=== PATIENT | male | born 1975 | race Caucasian/White ===

== ENCOUNTER 2017-04-17 00:14 | Inpatient (IN) | payer SELFPAY ==
[~2017-04-17] VITALS: Ht 190.5 cm; Wt 74.6 kg
[2017-04-17 00:45] VITALS: BP 111/59
[2017-04-17] MEDS ORDERED: METOCLOPRAMIDE HCL 10 MG/2 ML VIAL. IV PRN (00:45)
[2017-04-17] MEDS ORDERED: ONDANSETRON PF 4 MG/2 ML VIAL. IV PRN ×2 (00:45→10:45)
[2017-04-17] MEDS: IV NORMAL SALINE 1000ML BAG 1,000 ML IV SCH ×3 (01:11→16:45)
[2017-04-17] MEDS: fentaNYL PF VIAL 100 MCG/2 ML VIAL IV PRN ×2 (01:11→22:04)
[2017-04-17] MEDS ORDERED: GINK120C PO (01:20)
[2017-04-17 02:45] LABS: BASO % 0 % (0-3); EOS % 0 % (0-3); HEMATOCRIT 37.7 % (39.0-53.0); HEMOGLOBIN 12.5 g/dL (13.0-17.5); LYMPH # 0.8 x10^3/uL (1.0-4.8); LYMPH % 5 % (24-48); MEAN CORPUSCULAR HEMOGLOBIN 32 pg (25-35); MEAN CORPUSCULAR HGB CONC 33 g/dL (31-37); MEAN CORPUSCULAR VOLUME 96 fL (79-100); MONO % 3 % (0-9); NEUT % 92 % (31-73); PLATELET COUNT 193 x10^3/uL (140-400); RED BLOOD COUNT 3.92 x10^6/uL (4.30-5.70); RED CELL DISTRIBUTION WIDTH 13.7 % (11.5-14.5); WHITE BLOOD COUNT 16.5 x10^3/uL (4.0-11.0)
[2017-04-17 03:00] LABS: CALCIUM 7.8 mg/dL (8.5-10.1); CREATININE 0.8 mg/dL (0.7-1.3); GFR 107.1; POTASSIUM 3.7 mmol/L (3.5-5.1)
[2017-04-17 03:06] VITALS: BP_SYST 120; BP_SYST 97; BP_DIAS 45; BP_DIAS 76
[2017-04-17 03:24] LABS: PLT ESTIMATE ADEQUATE (ADEQUATE)
[2017-04-17 07:00] VITALS: BP 126/71
[2017-04-17] MEDS: PANTOPRAZOLE IV PUSH 40 MG VIAL. IVP SCH ×2 (08:31→18:06)
[2017-04-17 09:55] LABS: BASO % 0 % (0-3); EOS % 0 % (0-3); HEMATOCRIT 37.2 % (39.0-53.0); HEMOGLOBIN 12.5 g/dL (13.0-17.5); LYMPH # 1.2 x10^3/uL (1.0-4.8); LYMPH % 6 % (24-48); MEAN CORPUSCULAR HEMOGLOBIN 32 pg (25-35); MEAN CORPUSCULAR HGB CONC 34 g/dL (31-37); MEAN CORPUSCULAR VOLUME 95 fL (79-100); MONO % 6 % (0-9); NEUT % 88 % (31-73); PLATELET COUNT 210 x10^3/uL (140-400); RED BLOOD COUNT 3.91 x10^6/uL (4.30-5.70); RED CELL DISTRIBUTION WIDTH 13.5 % (11.5-14.5); WHITE BLOOD COUNT 20.4 x10^3/uL (4.0-11.0)
--- NOTE | 2017-04-17 09:55 | PDOC2 ---
CONSULT Date of Consult Date of Consult DATE: 04/17/17 TIME: 09:46 Reason for Consult Reason for Consult: Hematemesis Referring Physician Referring Physician: Dr. Rivera Source Source: Chart review, Patient History of Present Illness Reason for Visit: 41 y/o male who presented to [facility] ER yesterday after what sounds like possible heat exhaustion, complicated by repeated nausea and vomiting. Initially saw food, then bile, then some BRB/coffee-ground material. Today w/o N or V. No melena. Denies h/o heartburn, dysphagia or other dyspeptic symptoms prior to this. No PUD, GB, liver or pancreatic history. Smoker. Rare alcohol. Occasional use of Aleve. Typically w/o diarrhea or constipation. No hematochezia. Wt/appetite stable. GI family history negative. Only minor drop in hemoglobin from [facility] value and normal BUN. Past Medical History Past Medical History Negative. Past Surgical History Past Surgical History None Family History Family History: No Significant Social History ALCOHOL: rare Current Medications Current Medications Current Medications Sodium Chloride 1,000 ml @ 125 mls/hr Q8H IV Last administered on 04/17/17 08 :38; Start 04/17/17 at 00:45 Fentanyl Citrate (Fentanyl 2ml Vial) 75 mcg PRN Q2HR PRN IV SEVERE PAIN Last administered on 04/17/17 01:11; Start 04/17/17 at 00:45 Ondansetron HCl (Zofran) 8 mg PRN Q8HRS PRN IV NAUSEA/VOMITING; Start 04/17/17 at 00:45 Metoclopramide HCl (Reglan) 10 mg PRN Q6HRS PRN IV NAUSEA/VOMITING; Start 04/17 at 00:45 Pantoprazole Sodium (Protonix Vial) 40 mg BIDAC IVP Last administered on 08:31; Start 04/17/17 at 07:30 Active Scripts Active Reported Ginkgo Biloba (Ginkgo Biloba Extract) 120 Mg Capsule 120 Mg PO DAILY Allergies Allergies: Coded Allergies: morphine (Verified Allergy, Intermediate, Nausea and Vomiting, 04/17/17) Penicillins (Verified Allergy, Mild, Nausea and Vomiting, 04/17/17) ROS Review of System 10-point review otherwise negative. Physical Exam General: Alert, Oriented X3, Cooperative, No acute distress Lungs: Clear to auscultation Heart: Regular rate, Normal S1, Normal S2, No murmurs Abdomen: Normal bowel sounds, Soft, No hepatosplenomegaly, No masses, Other ( tender rectus muscle) Extremities: No cyanosis, No edema Skin: No significant lesion Neuro: Normal speech, Strength at 5/5 X4 ext, Normal tone, Sensation intact, Cranial nerves 3-12 NL, Reflexes 2+ Psych/Mental Status: Mental status NL, Mood NL MUSCULOSKELETAL: No deformity, No swelling Vitals VITALS Vital Signs Date Time Temp Pulse Resp B/P (MAP) Pulse Ox O2 Delivery O2 Flow Rate FiO2 04/17/17 07:40 Room Air 04/17/17 07:00 98.6 73 18 126/71 (89) 95 98.6 Labs Labs Laboratory Tests Test 04/17/17 02:15 White Blood Count 16.5 x10^3/uL (4.0-11.0) Red Blood Count 3.92 x10^6/uL (4.30-5.70) Hemoglobin 12.5 g/dL (13.0-17.5) Hematocrit 37.7 % (39.0-53.0) Mean Corpuscular Volume 96 fL (79-100) Mean Corpuscular Hemoglobin 32 pg (25-35) Mean Corpuscular Hemoglobin Concent 33 g/dL (31-37) Red Cell Distribution Width 13.7 % (11.5-14.5) Platelet Count 193 x10^3/uL (140-400) Neutrophils (%) (Auto) 92 % (31-73) Lymphocytes (%) (Auto) 5 % (24-48) Monocytes (%) (Auto) 3 % (0-9) Eosinophils (%) (Auto) 0 % (0-3) Basophils (%) (Auto) 0 % (0-3) Neutrophils # (Auto) 15.1 x10^3uL (1.8-7.7) Lymphocytes # (Auto) 0.8 x10^3/uL (1.0-4.8) Monocytes # (Auto) 0.5 x10^3/uL (0.0-1.1) Eosinophils # (Auto) 0.0 x10^3/uL (0.0-0.7) Basophils # (Auto) 0.0 x10^3/uL (0.0-0.2) Segmented Neutrophils % 97 % (35-66) Lymphocytes % 1 % (24-48) Monocytes % 2 % (0-10) Platelet Estimate Adequate (ADEQUATE) Sodium Level 139 mmol/L (136-145) Potassium Level 3.7 mmol/L (3.5-5.1) Chloride Level 106 mmol/L (98-107) Carbon Dioxide Level 24 mmol/L (21-32) Anion Gap 9 (6-14) Blood Urea Nitrogen 19 mg/dL (8-26) Creatinine 0.8 mg/dL (0.7-1.3) Estimated GFR (Cockcroft-Gault) 107.1 Glucose Level 102 mg/dL (70-99) Calcium Level 7.8 mg/dL (8.5-10.1) Laboratory Tests Test 04/17/17 02:15 White Blood Count 16.5 x10^3/uL (4.0-11.0) Red Blood Count 3.92 x10^6/uL (4.30-5.70) Hemoglobin 12.5 g/dL (13.0-17.5) Hematocrit 37.7 % (39.0-53.0) Mean Corpuscular Volume 96 fL (79-100) Mean Corpuscular Hemoglobin 32 pg (25-35) Mean Corpuscular Hemoglobin Concent 33 g/dL (31-37) Red Cell Distribution Width 13.7 % (11.5-14.5) Platelet Count 193 x10^3/uL (140-400) Neutrophils (%) (Auto) 92 % (31-73) Lymphocytes (%) (Auto) 5 % (24-48) Monocytes (%) (Auto) 3 % (0-9) Eosinophils (%) (Auto) 0 % (0-3) Basophils (%) (Auto) 0 % (0-3) Neutrophils # (Auto) 15.1 x10^3uL (1.8-7.7) Lymphocytes # (Auto) 0.8 x10^3/uL (1.0-4.8) Monocytes # (Auto) 0.5 x10^3/uL (0.0-1.1) Eosinophils # (Auto) 0.0 x10^3/uL (0.0-0.7) Basophils # (Auto) 0.0 x10^3/uL (0.0-0.2) Segmented Neutrophils % 97 % (35-66) Lymphocytes % 1 % (24-48) Monocytes % 2 % (0-10) Platelet Estimate Adequate (ADEQUATE) Sodium Level 139 mmol/L (136-145) Potassium Level 3.7 mmol/L (3.5-5.1) Chloride Level 106 mmol/L (98-107) Carbon Dioxide Level 24 mmol/L (21-32) Anion Gap 9 (6-14) Blood Urea Nitrogen 19 mg/dL (8-26) Creatinine 0.8 mg/dL (0.7-1.3) Estimated GFR (Cockcroft-Gault) 107.1 Glucose Level 102 mg/dL (70-99) Calcium Level 7.8 mg/dL (8.5-10.1) Assessment/Plan Assessment/Plan IMP: Hematemesis. 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 REC: Continue NPO, IV PPI. Will arrange for EGD today. --other pending. Thank you for allowing me to assist in the care of this patient. Please call if questions. GERMÁN RUSSELL MD Apr 17, 2017 09:55
[2017-04-17 09:59] LABS: CALCIUM 7.9 mg/dL (8.5-10.1); CREATININE 0.7 mg/dL (0.7-1.3); GFR 124.9; POTASSIUM 3.5 mmol/L (3.5-5.1)
--- NOTE | 2017-04-17 10:16 | ACF ---
Admission Forms Criteria GASTROINTESTINAL BLEEDING Clinical Indications for Inpatient Care (Place 'X' for any and all applicable criteria): Ongoing inpatient care may be indicated for gastrointestinal bleeding with ANY ONE of the following (4)(20)(21)(22)(23)(24): [X]I. Active bleeding (eg, fresh voluminous blood in emesis or nasogastric aspirate, or per rectum) [ ]II. Hemodynamic instability [ ]III. Anticoagulation therapy or coagulopathy ((eg, advanced liver disease, irreversible anticoagulation) [ ]IV. Ischemic colitis (22) [ ]V. Endoscopy showing arterial bleeding, adherent clot, nonbleeding visible vessel, varices, flat red spots, ulcer size greater than 2 cm, or portal hypertensive gastropathy [ ]. High-risk low platelet count [ ]VII. Anemia requiring inpatient care as indicated by ANY ONE of the following a)[ ] Cognitive impairment b)[ ] Syncope c)[ ] Heart failure d)[ ] Chest pain e)[ ] Dyspnea f)[ ] Other findings suggesting inadequate perfusion (eg, peripheral or myocardial ischemia, end organ dysfunction) [ ]VIII. High-risk low platelet count [ ]IX. Suspected variceal cause of bleeding as indicated by ANY ONE of the following(27)(28): a)[ ] Known varices b)[ ] Hepatomegaly or splenomegaly c)[ ] Ascites d)[ ] Jaundice or scleral icterus e)[ ] History of liver disease (eg, cirrhosis) f)[ ] Physical findings of portal hypertension (eg, caput medusa) g)[ ] Comorbid disorder indicating risk for portal vein thrombosis (eg , abdominal surgery, sepsis, shock, exchange transfusion, prior umbilical vein catheterization) Extended stay may be needed until ALL of the following are present(20)(38)(47): [ ]a) Hemodynamic stability [ ]b) No evidence of active bleeding (eg, stable Hematocrit) [ ]c) Platelet count, prothrombin time, and partial thromboplastin time acceptable for next level of care [ ]d) Surgical or other acute intervention not needed [ ]e) Oral hydration and diet tolerated The original [employer] content created by [employer] has been revised. The portions of the content which have been revised are identified through the use of italic text or in bold, and [employer] has neither reviewed nor approved the modified material. All other unmodified content is copyright [facility]. Please see references footnoted in the original [facility] edition 2016 Admission Criteria Met?: Yes JOSR FITZPATRICK Apr 17, 2017 10:15
[2017-04-17] MEDS ORDERED: hydrALAZINE 20 MG/ML VIAL. IVP PRN (10:45)
[2017-04-17] MEDS ORDERED: ACETAMINOPHEN 325 MG TABLET. PO PRN (10:45)
[2017-04-17] MEDS ORDERED: ALBUTEROL SULFATE 2.5 MG/3 ML NEBU. NEB PRN (10:45)
--- NOTE | 2017-04-17 10:50 | PDOC1 ---
History and Physical Family History Family History: No Significant Social History ALCOHOL: rare Current Medications Current Medications Current Medications Medications (Trade) Dose Ordered Sig/Rochelle Start Time Stop Time Status Last Admin Dose Admin Fentanyl Citrate (Fentanyl 2ml Vial) 75 mcg PRN Q2HR PRN 04/17/17 00:45 04/17/17 01:11 75 MCG Metoclopramide HCl (Reglan) 10 mg PRN Q6HRS PRN 04/17/17 00:45 Ondansetron HCl (Zofran) 8 mg PRN Q8HRS PRN 04/17/17 00:45 Pantoprazole Sodium (Protonix Vial) 40 mg BIDAC 04/17/17 07:30 04/17/17 08:31 40 MG Sodium Chloride 1,000 ml @ 125 mls/hr Q8H 04/17/17 00:45 04/17/17 08:38 125 MLS/HR Allergies Allergies Allergies Coded Allergies Type Severity Reaction Last Updated Verified morphine Allergy Intermediate Nausea and Vomiting 04/17/17 Yes Penicillins Allergy Mild Nausea and Vomiting 04/17/17 Yes ROS Review of System CONSTITUTIONAL: No fever or chills EYES: No recent changes SKIN: No rash or itching CARDIOVASCULAR: No chest pain, syncope, palpitations, or edema RESPIRATORY: No SOB or cough GASTROINTESTINAL: nausea, vomiting or abdominal pain NEUROLOGICAL: No headaches or weakness ENDOCRINE: No cold or heat intolerance GENITOURINARY: No urgency or frequency of urination MUSCULOSKELETAL: No back pain or joint pain LYMPHATICS: No enlarged lymph nodes PSYCHIATRIC: No anxiety or depression Physical Exam Physical Exam GEN.: No apparent distress. Alert and oriented. HEENT: Head is normocephalic, atraumatic NECK: Supple. LUNGS: Clear to auscultation. HEART: RRR, S1, S2 present. Peripheral pulses intact ABDOMEN: Soft, nontender. Positive bowel sounds. EXTREMITIES: Without any cyanosis. NEUROLOGIC: Normal speech, normal tone PSYCHIATRIC: Normal affect, normal mood. SKIN: No ulcerations Vitals Vitals Vital Signs Date Time Temp Pulse Resp B/P (MAP) Pulse Ox O2 Delivery O2 Flow Rate FiO2 04/17/17 07:40 Room Air 04/17/17 07:00 98.6 73 18 126/71 (89) 95 98.6 Labs Labs Laboratory Tests Test 04/17/17 02:15 04/17/17 09:40 White Blood Count 16.5 x10^3/uL (4.0-11.0) 20.4 x10^3/uL (4.0-11.0) Red Blood Count 3.92 x10^6/uL (4.30-5.70) 3.91 x10^6/uL (4.30-5.70) Hemoglobin 12.5 g/dL (13.0-17.5) 12.5 g/dL (13.0-17.5) Hematocrit 37.7 % (39.0-53.0) 37.2 % (39.0-53.0) Mean Corpuscular Volume 96 fL (79-100) 95 fL (79-100) Mean Corpuscular Hemoglobin 32 pg (25-35) 32 pg (25-35) Mean Corpuscular Hemoglobin Concent 33 g/dL (31-37) 34 g/dL (31-37) Red Cell Distribution Width 13.7 % (11.5-14.5) 13.5 % (11.5-14.5) Platelet Count 193 x10^3/uL (140-400) 210 x10^3/uL (140-400) Neutrophils (%) (Auto) 92 % (31-73) 88 % (31-73) Lymphocytes (%) (Auto) 5 % (24-48) 6 % (24-48) Monocytes (%) (Auto) 3 % (0-9) 6 % (0-9) Eosinophils (%) (Auto) 0 % (0-3) 0 % (0-3) Basophils (%) (Auto) 0 % (0-3) 0 % (0-3) Neutrophils # (Auto) 15.1 x10^3uL (1.8-7.7) 18.0 x10^3uL (1.8-7.7) Lymphocytes # (Auto) 0.8 x10^3/uL (1.0-4.8) 1.2 x10^3/uL (1.0-4.8) Monocytes # (Auto) 0.5 x10^3/uL (0.0-1.1) 1.2 x10^3/uL (0.0-1.1) Eosinophils # (Auto) 0.0 x10^3/uL (0.0-0.7) 0.0 x10^3/uL (0.0-0.7) Basophils # (Auto) 0.0 x10^3/uL (0.0-0.2) 0.0 x10^3/uL (0.0-0.2) Segmented Neutrophils % 97 % (35-66) Lymphocytes % 1 % (24-48) Monocytes % 2 % (0-10) Platelet Estimate Adequate (ADEQUATE) Sodium Level 139 mmol/L (136-145) 138 mmol/L (136-145) Potassium Level 3.7 mmol/L (3.5-5.1) 3.5 mmol/L (3.5-5.1) Chloride Level 106 mmol/L (98-107) 105 mmol/L (98-107) Carbon Dioxide Level 24 mmol/L (21-32) 23 mmol/L (21-32) Anion Gap 9 (6-14) 10 (6-14) Blood Urea Nitrogen 19 mg/dL (8-26) 15 mg/dL (8-26) Creatinine 0.8 mg/dL (0.7-1.3) 0.7 mg/dL (0.7-1.3) Estimated GFR (Cockcroft-Gault) 107.1 124.9 Glucose Level 102 mg/dL (70-99) 99 mg/dL (70-99) Calcium Level 7.8 mg/dL (8.5-10.1) 7.9 mg/dL (8.5-10.1) Laboratory Tests Test 04/17/17 02:15 04/17/17 09:40 White Blood Count 16.5 x10^3/uL (4.0-11.0) 20.4 x10^3/uL (4.0-11.0) Red Blood Count 3.92 x10^6/uL (4.30-5.70) 3.91 x10^6/uL (4.30-5.70) Hemoglobin 12.5 g/dL (13.0-17.5) 12.5 g/dL (13.0-17.5) Hematocrit 37.7 % (39.0-53.0) 37.2 % (39.0-53.0) Mean Corpuscular Volume 96 fL (79-100) 95 fL (79-100) Mean Corpuscular Hemoglobin 32 pg (25-35) 32 pg (25-35) Mean Corpuscular Hemoglobin Concent 33 g/dL (31-37) 34 g/dL (31-37) Red Cell Distribution Width 13.7 % (11.5-14.5) 13.5 % (11.5-14.5) Platelet Count 193 x10^3/uL (140-400) 210 x10^3/uL (140-400) Neutrophils (%) (Auto) 92 % (31-73) 88 % (31-73) Lymphocytes (%) (Auto) 5 % (24-48) 6 % (24-48) Monocytes (%) (Auto) 3 % (0-9) 6 % (0-9) Eosinophils (%) (Auto) 0 % (0-3) 0 % (0-3) Basophils (%) (Auto) 0 % (0-3) 0 % (0-3) Neutrophils # (Auto) 15.1 x10^3uL (1.8-7.7) 18.0 x10^3uL (1.8-7.7) Lymphocytes # (Auto) 0.8 x10^3/uL (1.0-4.8) 1.2 x10^3/uL (1.0-4.8) Monocytes # (Auto) 0.5 x10^3/uL (0.0-1.1) 1.2 x10^3/uL (0.0-1.1) Eosinophils # (Auto) 0.0 x10^3/uL (0.0-0.7) 0.0 x10^3/uL (0.0-0.7) Basophils # (Auto) 0.0 x10^3/uL (0.0-0.2) 0.0 x10^3/uL (0.0-0.2) Segmented Neutrophils % 97 % (35-66) Lymphocytes % 1 % (24-48) Monocytes % 2 % (0-10) Platelet Estimate Adequate (ADEQUATE) Sodium Level 139 mmol/L (136-145) 138 mmol/L (136-145) Potassium Level 3.7 mmol/L (3.5-5.1) 3.5 mmol/L (3.5-5.1) Chloride Level 106 mmol/L (98-107) 105 mmol/L (98-107) Carbon Dioxide Level 24 mmol/L (21-32) 23 mmol/L (21-32) Anion Gap 9 (6-14) 10 (6-14) Blood Urea Nitrogen 19 mg/dL (8-26) 15 mg/dL (8-26) Creatinine 0.8 mg/dL (0.7-1.3) 0.7 mg/dL (0.7-1.3) Estimated GFR (Cockcroft-Gault) 107.1 124.9 Glucose Level 102 mg/dL (70-99) 99 mg/dL (70-99) Calcium Level 7.8 mg/dL (8.5-10.1) 7.9 mg/dL (8.5-10.1) VTE Prophylaxis Ordered VTE Prophylaxis Devices: Yes VTE Pharmacological Prophylaxi: No AYDIN PARSONS MD Apr 17, 2017 10:50
[2017-04-17] MEDS ORDERED: PROPOFOL 20 ML IV ONE (10:52)
[2017-04-17] MEDS ORDERED: LIDOCAINE 2% PF Vial for OR 5 ML VIAL. ONE (10:53)
--- NOTE | 2017-04-17 11:19 | PDOC4 ---
PROCEDURE Procedure EGD Indication: hematemesis Meds: per anesthesia Findings: E--Grade I reflux esophagitis. Tiny vinny-rosado tear at GE junction, maybe 2- 3mm; some minor bleeding with scope passage seen to stop. G--Small hiatal hernia. Pre-pyloric erosions. D--Normal to second portion. Terri. well. IMP: vinny-rosado syndrome Reflux esophagitis Hiatal hernia Few prepyloric erosions. REC: clears ok Continue PPI, po if tolerates clears. If remains stable, OK to go home in AM. Would give PPI a couple of weeks. Thanks. GERMÁN RUSSELL MD Apr 17, 2017 11:19
[2017-04-17 15:00] VITALS: BP 111/63
--- NOTE | 2017-04-17 17:27 | HP ---
ADMIT DATE: 04/17/2017 CHIEF COMPLAINT: Nausea, vomiting, abdominal pain, and hematemesis. HISTORY OF PRESENT ILLNESS: A 41-year-old male patient with no significant prior medical conditions who presented to [facility] with complaints of nausea, vomiting, and exhaustion and dehydration. The patient has been working in sun all day. He was trying to help move things and was noted to have some bright color coffee-ground emesis yesterday and had intractable nausea and vomiting. He denies any melena, heartburn or previous history of gastric ulcer or peptic ulcer disease. Today, I saw the patient after an EGD and doing well. Pain has been well controlled, and nausea has been improving. PAST MEDICAL HISTORY: None. PAST SURGICAL HISTORY: None. FAMILY HISTORY: No GI cancer. SOCIAL HISTORY: Occasionally, he smokes. No alcohol or drug abuse. HOME MEDICATIONS: Currently on hold. REVIEW OF SYSTEMS: Please see my electronic H and P. PHYSICAL EXAMINATION: Please see my electronic H and P. LABORATORY DATA: CBC: WBC 16.5, hemoglobin 12.5, MCV 96, and platelets 197. Chemistries: Sodium 139, potassium 3.7, chloride 106, carbon dioxide 24, anion gap is 9, creatinine 0.8, and calcium is 7.8. ASSESSMENT AND PLAN: 1. 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 2. Intractable nausea and vomiting. 3. Leukocytosis. 4. Status post EGD. 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 5. On Protonix. 6. Continue IV hydration. 7. Monitor WBC and recheck CBC and BMP in the a.m. Likely reactive, no source of infection noted. 8. Pain control with IV fentanyl. VINICIUS ARTEAGA MD DR: FARIHA/savanah JOB#: [id number] / [id number]
[2017-04-17 19:00] VITALS: BP 111/60
[2017-04-17 23:20] VITALS: BP 110/52
[2017-04-18 03:00] VITALS: BP 97/41
[2017-04-18] MEDS: IV NORMAL SALINE 1000ML BAG 1,000 ML IV SCH ×3 (04:00→16:45)
[2017-04-18 04:31] LABS: BASO % 0 % (0-3); EOS % 2 % (0-3); HEMATOCRIT 36.3 % (39.0-53.0); HEMOGLOBIN 12.1 g/dL (13.0-17.5); LYMPH # 3.4 x10^3/uL (1.0-4.8); LYMPH % 32 % (24-48); MEAN CORPUSCULAR HEMOGLOBIN 32 pg (25-35); MEAN CORPUSCULAR HGB CONC 33 g/dL (31-37); MEAN CORPUSCULAR VOLUME 97 fL (79-100); MONO % 7 % (0-9); NEUT % 59 % (31-73); PLATELET COUNT 198 x10^3/uL (140-400); RED BLOOD COUNT 3.76 x10^6/uL (4.30-5.70); RED CELL DISTRIBUTION WIDTH 13.6 % (11.5-14.5); WHITE BLOOD COUNT 10.7 x10^3/uL (4.0-11.0)
[2017-04-18 05:16] LABS: CALCIUM 8.1 mg/dL (8.5-10.1); CREATININE 0.9 mg/dL (0.7-1.3); GFR 93.5; POTASSIUM 3.8 mmol/L (3.5-5.1)
[2017-04-18] MEDS: PANTOPRAZOLE IV PUSH 40 MG VIAL. IVP SCH ×2 (05:54→09:18)
[2017-04-18 07:00] VITALS: BP 110/54
[2017-04-18] MEDS ORDERED: traMADol 50 MG TABLET PO PRN (09:45)
--- NOTE | 2017-04-18 10:09 | HP ---
ADMIT DATE: 04/17/2017 CHIEF COMPLAINT: Nausea, vomiting, abdominal pain, and hematemesis. HISTORY OF PRESENT ILLNESS: A 41-year-old male patient with no significant prior medical conditions who presented to [facility] with complaints of nausea, vomiting, and exhaustion and dehydration. The patient has been working in sun all day. He was trying to help move things and was noted to have some bright color coffee-ground emesis yesterday and had intractable nausea and vomiting. He denies any melena, heartburn or previous history of gastric ulcer or peptic ulcer disease. Today, I saw the patient after an EGD and doing well. Pain has been well controlled, and nausea has been improving. PAST MEDICAL HISTORY: None. PAST SURGICAL HISTORY: None. FAMILY HISTORY: No GI cancer. SOCIAL HISTORY: Occasionally, he smokes. No alcohol or drug abuse. HOME MEDICATIONS: Currently on hold. REVIEW OF SYSTEMS: Please see my electronic H and P. PHYSICAL EXAMINATION: Please see my electronic H and P. LABORATORY DATA: CBC: WBC 16.5, hemoglobin 12.5, MCV 96, and platelets 197. Chemistries: Sodium 139, potassium 3.7, chloride 106, carbon dioxide 24, anion gap is 9, creatinine 0.8, and calcium is 7.8. ASSESSMENT AND PLAN: 1. 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 2. Intractable nausea and vomiting. 3. Leukocytosis. 4. Status post EGD. 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 5. On Protonix. 6. Continue IV hydration. 7. Monitor WBC and recheck CBC and BMP in the a.m. Likely reactive, no source of infection noted. 8. Pain control with IV fentanyl. AYDIN PARSONS MD DR: LILIANA/savanah JOB#: [id number] / [id number]
[2017-04-18] MEDS ORDERED: TRAM50TA PO (10:23)
[2017-04-18] MEDS ORDERED: PANT40TA5 PO (10:23)
[2017-04-18 11:00] VITALS: BP 114/60
--- NOTE | 2017-04-18 13:33 | PDOC3 ---
Discharge Summary [facility] Date of Admission: Apr 17, 2017 Discharge Date: Apr 18, 2017 Admitting Diagnosis 1. Hematemesis, + Breanna-Quezada syndrome. 2. Intractable nausea and vomiting. 3. Leukocytosis. 4. Status post EGD. 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 5. tobaccoism Problems: CONSULTS GI Procedures EGD Brief Hospital Course Mr. Contreras is a 41 old M, smoking, was transferred from [facility] for [place], hematemesis, EGD showed MS syndrome, reflux esophagitis. pt feels better , advance diet today. dc if ok with gi dc time 35min. Physical Exam GEN.: No apparent distress. Alert and oriented. HEENT: Head is normocephalic, atraumatic NECK: Supple. LUNGS: Clear to auscultation. HEART: RRR, S1, S2 present. Peripheral pulses intact ABDOMEN: Soft, nontender. Positive bowel sounds. EXTREMITIES: Without any cyanosis. NEUROLOGIC: Normal speech, normal tone PSYCHIATRIC: Normal affect, normal mood. SKIN: No ulcerations Patient History: Patient reports no known family medical history. Problems: Disposition home CONDITION AT DISCHARGE: Improved Diet gi soft Scheduled Ginkgo Biloba Extract (Ginkgo Biloba), 120 MG PO DAILY, (Reported) Pantoprazole Sodium (Pantoprazole Sodium), 40 MG PO BIDAC Scheduled PRN Tramadol Hcl (Tramadol Hcl), 50 MG PO PRN Q6HRS PRN for PAIN Follow Up pcp in 2weeks SUSAN PAYTON MD Apr 18, 2017 13:33
[2017-04-18] MEDS: fentaNYL PF VIAL 100 MCG/2 ML VIAL IV PRN (14:11)
--- NOTE | 2017-04-18 14:13 | PDOC ---
Subjective: Subjective: Tolerating PO, no bleeding. "Pushed" to have a stool (says "liquid") and now has right-sided pain. Ready to DC. Objective: Objective: Per RN - called earlier w/ DC orders. No bleeding. Vital Signs: Vital Signs Date Time Temp Pulse Resp B/P (MAP) Pulse Ox O2 Delivery O2 Flow Rate FiO2 04/18/17 11:00 98.5 70 20 114/60 (78) 97 Room Air 98.5 Labs: Laboratory Tests Test 04/18/17 03:50 White Blood Count 10.7 x10^3/uL Red Blood Count 3.76 x10^6/uL Hemoglobin 12.1 g/dL Hematocrit 36.3 % Mean Corpuscular Volume 97 fL Mean Corpuscular Hemoglobin 32 pg Mean Corpuscular Hemoglobin Concent 33 g/dL Red Cell Distribution Width 13.6 % Platelet Count 198 x10^3/uL Neutrophils (%) (Auto) 59 % Lymphocytes (%) (Auto) 32 % Monocytes (%) (Auto) 7 % Eosinophils (%) (Auto) 2 % Basophils (%) (Auto) 0 % Neutrophils # (Auto) 6.3 x10^3uL Lymphocytes # (Auto) 3.4 x10^3/uL Monocytes # (Auto) 0.7 x10^3/uL Eosinophils # (Auto) 0.2 x10^3/uL Basophils # (Auto) 0.0 x10^3/uL Sodium Level 142 mmol/L Potassium Level 3.8 mmol/L Chloride Level 110 mmol/L Carbon Dioxide Level 27 mmol/L Anion Gap 5 Blood Urea Nitrogen 12 mg/dL Creatinine 0.9 mg/dL Estimated GFR (Cockcroft-Gault) 93.5 Glucose Level 90 mg/dL Calcium Level 8.1 mg/dL Imaging: EGD 04/17/17 E--Grade I reflux esophagitis. Tiny vinny-rosado tear at GE junction, maybe 2- 3mm; some minor bleeding with scope passage seen to stop. G--Small hiatal hernia. Pre-pyloric erosions. D--Normal to second portion. IMP: ivnny-rosado syndrome Reflux esophagitis Hiatal hernia Few prepyloric erosions PE: GEN: NAD LUNGS: CTAB HEART: RRR ABD: right-sided tenderness NEURO/PSYCH: A & O 3 A/P: Hematemesis - no recurrence -EGD w/ reflux, M-W tear, pre-pyloric erosions -- ADAT. DC okay per GI. Continue PPI. JOSE CHILD Apr 18, 2017 14:13
[2017-04-18 15:00] VITALS: BP 111/48
[2017-04-18] MEDS ORDERED: PANTOPRAZOLE 40 MG TABLET.DR. PO SCH (16:30)
== END 2017-04-18 18:11 | disposition home or self-care (01) | DRG 391 ==
LOC: 4 NORTH 00:14
PROVIDERS: ADMIT Internal Medicine; ATTEND Internal Medicine
PROC: 0DJ08ZZ Inspection of Upper Intestinal Tract, Via Natural or Artificial Opening Endoscopic (ICD-10-PCS; principal; 2017-04-17 11:04)
DX: K21.0 Gastro-esophageal reflux disease with esophagitis (principal); K22.6 Gastro-esophageal laceration-hemorrhage syndrome; D72.829 Elevated white blood cell count, unspecified; F17.200 Nicotine dependence, unspecified, uncomplicated; K44.9 Diaphragmatic hernia without obstruction or gangrene; Z88.5 Allergy status to narcotic agent; Z88.0 Allergy status to penicillin
CPT/HCPCS: 36415; 80048; 85007; 85027; C9113; J2704; J3010; J7030